=== PATIENT | male | born 1965 | race Two or more races ===

== ENCOUNTER 2022-11-04 01:31 | Inpatient (IN) | payer MEDICAID ==
[~2022-11-04] VITALS: Ht 188 cm; Wt 117.5 kg
[2022-11-04 02:46] LABS: Basophils # (auto) 0 10 ^3/uL (0-0.2); Basophils % (auto) 0.5 % (0.0-2.0); Eosinophils # (auto) 0.3 10 ^3/uL (0-0.8); Eosinophils % (auto) 2.6 % (0.0-7.0); Hematocrit 45.1 % (41.0-53.0); Hemoglobin 15.5 g/dL (13.5-17.5); Lymphocytes # (auto) 1.5 10 ^3/uL (0.4-5.4); Lymphocytes % (auto) 15.1 % (10.0-50.0); Mean Corpuscular Hemoglobin 31.2 pg (28.0-32.0); Mean Corpuscular Hgb Conc. 34.3 g/dL (32.0-36.0); Monocytes # (auto) 1.6 10 ^3/uL (0-1.3); Neutrophils # (auto) 6.5 10 ^3/uL (1.6-8.6); Neutrophils % (auto) 65.8 % (37.0-80.0); Nucleated Red Blood Cells % 0.1 %; Red Blood Cells 4.96 10^6/uL (4.5-5.90); Red Cell Distribution Width 13.9 % (11.8-14.3); White Blood Cell 9.9 10^3/uL (4.4-10.8)
[2022-11-04 03:01] LABS: INR 1.17 (0.9-1.15); Partial Thromboplastin Time 34.5 SEC (24.5-34.5); Prothrombin Time 12.2 sec (9.3-11.8)
[2022-11-04 03:20] LABS: Alanine Aminotransferase 12 U/L (7-40); Alkaline Phosphatase 90 U/L (46-116); Anion Gap 7.3 (5-15); Aspartate Aminotransferase 18 U/L (13-40); BUN/Creatinine Ratio 14.4 (10.0-20.0); Blood Urea Nitrogen 13 mg/dL (9-23); Carbon Dioxide 23.7 mmol/L (20-30); Chloride 102 mmol/L (98-107); Glucose 125 mg/dL (74-106); Potassium 3.9 mmol/L (3.5-5.1); Sodium 133 mmol/L (136-145)
[2022-11-04 03:21] LABS: Bilirubin, Total 0.9 mg/dL (0.2-1.0); Total Protein 7.7 g/dL (5.7-8.2)
[2022-11-04] MEDS ORDERED: FUROSEMIDE 40 MG/4 ML VIAL IV ONE ×2 (07:15→13:45)
[2022-11-04] MEDS ORDERED: cloNIDine HCL 0.1 MG TAB PO ONE (08:00)
[2022-11-04] MEDS ORDERED: CLINDAMYCIN HCL 150 MG CAP PO ONE (09:45)
[2022-11-04] MEDS ORDERED: cefTRIAXone 1GM/50ML D5W 50 ML IV ONE (09:45)
[2022-11-04 12:30] VITALS: PULSE 75; RESP 19; O2SAT 98
[2022-11-04] MEDS ORDERED: VANCOMYCIN PER PHARMACY 0 MG IV SCH (13:45)
[2022-11-04] MEDS ORDERED: NITROGLYCERIN 0.4 MG SL TAB SL PRN (13:45)
[2022-11-04] MEDS ORDERED: MORPHINE SULFATE INJ 2 MG/ml SYRG IV PRN ×2 (13:45→17:15)
[2022-11-04] MEDS ORDERED: PIPERACILLIN-TAZOB 3.375GM 100 ML IV SCH ×2 (14:00→14:15)
[2022-11-04] MEDS: METOPROLOL SUCCINATE XL 50 MG TAB PO SCH (14:01)
[2022-11-04] MEDS: LOSARTAN POTASSIUM 25 MG TAB PO SCH (14:02)
[2022-11-04] MEDS: APIXABAN 5 MG TAB PO SCH ×2 (14:02→22:25)
[2022-11-04] MEDS: SPIRONOLACTONE 25 MG TAB PO SCH (14:02)
[2022-11-04] MEDS: VANCOMYCIN 1GM/250ML 250 ML IV SCH (15:10)
[2022-11-04 15:58] LABS: Urine Bacteria NONE SEEN /hpf (None Seen); Urine Blood 1+ /uL (Negative); Urine Clarity Clear (Clear); Urine Color Colorless (Yellow); Urine Protein, UAD Negative (Negative); Urine Specific Gravity 1.008 (1.001-1.035); Urine Urobilinogen Normal (Negative); Urine WBC 28 /hpf (0 - 3); Urine pH 6.5 (5.0-8.0)
[2022-11-04 19:30] VITALS: PULSE 72; RESP 22; O2SAT 96
[2022-11-04] MEDS: PIPERACILLIN-TAZOB 3.375GM 100 ML IV SCH (20:54)
[2022-11-05] MEDS ORDERED: METO25TA93 PO (00:28)
[2022-11-05] MEDS ORDERED: APIX5TAB PO (00:28)
[2022-11-05] MEDS ORDERED: LOSA25TA15 PO (00:28)
[2022-11-05] MEDS ORDERED: FURO40TA4 PO (00:28)
[2022-11-05] MEDS ORDERED: SPIR25TA8 PO (00:28)
[2022-11-05] MEDS: VANCOMYCIN 1GM/250ML 250 ML IV SCH ×3 (01:19→22:21)
[2022-11-05] MEDS: PIPERACILLIN-TAZOB 3.375GM 100 ML IV SCH ×4 (02:24→20:30)
[2022-11-05 05:00] VITALS: BP 143/82; PULSE 67; RESP 20; TEMP 98.4; O2SAT 98
[2022-11-05 06:36] LABS: Anion Gap 5.4 (5-15); Carbon Dioxide 28.6 mmol/L (20-30); Chloride 102 mmol/L (98-107); Sodium 136 mmol/L (136-145)
[2022-11-05 06:37] LABS: Calcium 8.6 mg/dL (8.5-10.1)
[2022-11-05 06:42] LABS: BUN/Creatinine Ratio 17.5 (10.0-20.0); Blood Urea Nitrogen 17 mg/dL (9-23); Glucose 112 mg/dL (74-106); Triglycerides 93 mg/dL (< 150)
[2022-11-05 06:43] LABS: LDL Cholesterol 91 mg/dL (< 100)
[2022-11-05 06:44] LABS: Cholesterol 126 mg/dL (< 200); HDL Cholesterol 23 mg/dL (40-59)
[2022-11-05 06:46] LABS: Basophils # (auto) 0.1 10 ^3/uL (0-0.2); Basophils % (auto) 0.8 % (0.0-2.0); Eosinophils # (auto) 0.4 10 ^3/uL (0-0.8); Eosinophils % (auto) 4.9 % (0.0-7.0); Hematocrit 44.2 % (41.0-53.0); Hemoglobin 15.1 g/dL (13.5-17.5); Lymphocytes # (auto) 1.6 10 ^3/uL (0.4-5.4); Lymphocytes % (auto) 18.3 % (10.0-50.0); Mean Corpuscular Hemoglobin 31.1 pg (28.0-32.0); Mean Corpuscular Hgb Conc. 34.1 g/dL (32.0-36.0); Mean Corpuscular Volume 91.1 fL (80.0-100.0); Monocytes # (auto) 1.3 10 ^3/uL (0-1.3); Monocytes % (auto) 15.4 % (0.0-12.0); Neutrophils # (auto) 5.2 10 ^3/uL (1.6-8.6); Neutrophils % (auto) 60.6 % (37.0-80.0); Red Blood Cells 4.86 10^6/uL (4.5-5.90); Red Cell Distribution Width 13.6 % (11.8-14.3); White Blood Cell 8.6 10^3/uL (4.4-10.8)
[2022-11-05 08:00] VITALS: RESP 18
[2022-11-05 09:00] VITALS: BP 129/85; PULSE 84; RESP 17; TEMP 97.4; O2SAT 97
[2022-11-05] MEDS: FUROSEMIDE 40 MG/4 ML VIAL IV SCH (10:00)
[2022-11-05] MEDS: APIXABAN 5 MG TAB PO SCH ×2 (10:00→19:56)
[2022-11-05] MEDS: SPIRONOLACTONE 25 MG TAB PO SCH (11:01)
[2022-11-05] MEDS: LOSARTAN POTASSIUM 25 MG TAB PO SCH (11:02)
[2022-11-05] MEDS: METOPROLOL SUCCINATE XL 50 MG TAB PO SCH (11:03)
[2022-11-05 13:03] VITALS: BP 153/90; PULSE 74; RESP 17; TEMP 97.5; O2SAT 96
[2022-11-05 16:08] LABS: Urine Bacteria NONE SEEN /hpf (None Seen); Urine Blood 3+ /uL (Negative); Urine Clarity HAZY (Clear); Urine Color Yellow (Yellow); Urine Protein, UAD TRACE (Negative); Urine Specific Gravity 1.014 (1.001-1.035); Urine WBC 54 /hpf (0 - 3)
[2022-11-05 16:47] LABS: INR 1.18 (0.9-1.15); Partial Thromboplastin Time 31.2 SEC (24.5-34.5); Prothrombin Time 12.3 sec (9.3-11.8)
[2022-11-05 17:00] VITALS: BP 134/81; PULSE 79; RESP 18; TEMP 97.7; O2SAT 96
[2022-11-05] MEDS: ATORVASTATIN 20 MG TAB PO SCH (20:33)
[2022-11-06] MEDS: PIPERACILLIN-TAZOB 3.375GM 100 ML IV SCH ×4 (01:25→21:38)
[2022-11-06 05:19] LABS: Calcium 8.9 mg/dL (8.5-10.1); Chloride 102 mmol/L (98-107); Potassium 4.2 mmol/L (3.5-5.1); Sodium 134 mmol/L (136-145)
[2022-11-06 05:20] LABS: Anion Gap 5.6 (5-15); Carbon Dioxide 26.4 mmol/L (20-30)
[2022-11-06 05:26] LABS: BUN/Creatinine Ratio 13.5 (10.0-20.0); Blood Urea Nitrogen 13 mg/dL (9-23); Glucose 119 mg/dL (74-106)
[2022-11-06 05:27] LABS: Basophils # (auto) 0.1 10 ^3/uL (0-0.2); Basophils % (auto) 0.7 % (0.0-2.0); Eosinophils # (auto) 0.3 10 ^3/uL (0-0.8); Eosinophils % (auto) 3.5 % (0.0-7.0); Hematocrit 45.9 % (41.0-53.0); Hemoglobin 15.7 g/dL (13.5-17.5); Lymphocytes # (auto) 1.2 10 ^3/uL (0.4-5.4); Lymphocytes % (auto) 13.8 % (10.0-50.0); Mean Corpuscular Hemoglobin 31.3 pg (28.0-32.0); Mean Corpuscular Hgb Conc. 34.2 g/dL (32.0-36.0); Mean Corpuscular Volume 91.6 fL (80.0-100.0); Monocytes # (auto) 1.1 10 ^3/uL (0-1.3); Monocytes % (auto) 12.8 % (0.0-12.0); Neutrophils # (auto) 6.1 10 ^3/uL (1.6-8.6); Neutrophils % (auto) 69.2 % (37.0-80.0); Red Blood Cells 5.01 10^6/uL (4.5-5.90); Red Cell Distribution Width 13.8 % (11.8-14.3); White Blood Cell 8.8 10^3/uL (4.4-10.8)
[2022-11-06 08:00] VITALS: RESP 18
[2022-11-06 08:30] VITALS: BP_SYST 117; BP_SYST 150; BP_DIAS 80; BP_DIAS 90; PULSE 54; PULSE 63; RESP 19; RESP 20; TEMP 97.9; TEMP 98; O2SAT 100
[2022-11-06] MEDS: VANCOMYCIN 1GM/250ML 250 ML IV SCH ×2 (09:02→18:08)
[2022-11-06] MEDS: SPIRONOLACTONE 25 MG TAB PO SCH (09:12)
[2022-11-06] MEDS: METOPROLOL SUCCINATE XL 50 MG TAB PO SCH (09:12)
[2022-11-06] MEDS: LOSARTAN POTASSIUM 25 MG TAB PO SCH (09:12)
[2022-11-06] MEDS: FUROSEMIDE 40 MG/4 ML VIAL IV SCH (10:00)
[2022-11-06] MEDS: APIXABAN 5 MG TAB PO SCH ×2 (10:00→19:56)
[2022-11-06 16:30] VITALS: BP 129/83; PULSE 53; RESP 20; TEMP 98; O2SAT 97
[2022-11-06 21:38] VITALS: BP 136/96; PULSE 61; RESP 100; TEMP 98.1; O2SAT 100
[2022-11-06] MEDS: ATORVASTATIN 20 MG TAB PO SCH (21:40)
[2022-11-07] MEDS: PIPERACILLIN-TAZOB 3.375GM 100 ML IV SCH ×2 (02:00→09:14)
[2022-11-07] MEDS: VANCOMYCIN 1GM/250ML 250 ML IV SCH ×2 (04:08→13:40)
[2022-11-07 05:00] VITALS: BP 170/98; PULSE 64; RESP 16; TEMP 98.1; O2SAT 98
[2022-11-07 06:30] VITALS: BP 162/102; PULSE 63
[2022-11-07 06:54] LABS: Calcium 9.2 mg/dL (8.7-10.4); Chloride 102 mmol/L (98-107); Potassium 4.1 mmol/L (3.5-5.1); Sodium 133 mmol/L (136-145)
[2022-11-07 06:55] LABS: Anion Gap 7.3 (5-15); Carbon Dioxide 23.7 mmol/L (20-30)
[2022-11-07 07:00] LABS: BUN/Creatinine Ratio 10.9 (10.0-20.0); Blood Urea Nitrogen 10 mg/dL (9-23); Glucose 137 mg/dL (74-106)
[2022-11-07 08:13] LABS: Basophils # (auto) 0.1 10 ^3/uL (0-0.2); Basophils % (auto) 0.9 % (0.0-2.0); Eosinophils # (auto) 0.5 10 ^3/uL (0-0.8); Eosinophils % (auto) 5.6 % (0.0-7.0); Hematocrit 47.5 % (41.0-53.0); Hemoglobin 16.2 g/dL (13.5-17.5); Lymphocytes # (auto) 1.8 10 ^3/uL (0.4-5.4); Lymphocytes % (auto) 20.8 % (10.0-50.0); Mean Corpuscular Hgb Conc. 34.1 g/dL (32.0-36.0); Monocytes # (auto) 1.1 10 ^3/uL (0-1.3); Monocytes % (auto) 12.3 % (0.0-12.0); Neutrophils # (auto) 5.3 10 ^3/uL (1.6-8.6); Neutrophils % (auto) 60.4 % (37.0-80.0); Nucleated Red Blood Cells % 0.1 %; Red Blood Cells 5.22 10^6/uL (4.5-5.90); Red Cell Distribution Width 13.7 % (11.8-14.3); White Blood Cell 8.7 10^3/uL (4.4-10.8)
[2022-11-07 09:00] VITALS: BP 159/102; PULSE 69; RESP 18; TEMP 97.8; O2SAT 96
[2022-11-07] MEDS: FUROSEMIDE 40 MG/4 ML VIAL IV SCH (09:24)
[2022-11-07] MEDS: METOPROLOL SUCCINATE XL 50 MG TAB PO SCH (09:25)
[2022-11-07] MEDS: APIXABAN 5 MG TAB PO SCH (09:25)
[2022-11-07] MEDS: SPIRONOLACTONE 25 MG TAB PO SCH (09:26)
[2022-11-07] MEDS ORDERED: LOSARTAN POTASSIUM 50 MG TAB PO SCH (10:00)
[2022-11-07 14:55] VITALS: BP 159/102; PULSE 69; RESP 18; TEMP 97.8; O2SAT 96
[2022-11-07] MEDS ORDERED: FURO40TA4 PO (14:57)
[2022-11-07] MEDS ORDERED: SPIR25TA8 PO (14:57)
[2022-11-07] MEDS ORDERED: APIX5TAB PO (14:57)
[2022-11-07] MEDS ORDERED: METO25TA93 PO (14:57)
[2022-11-07] MEDS ORDERED: DOXY1CAP57 PO (14:57)
[2022-11-07] MEDS ORDERED: LOSA25TA15 PO (14:57)
== END 2022-11-07 16:20 | disposition home or self-care (01) | DRG 383 ==
LOC: ER 01:31 → OVERFLOW 13:32 → WEST WING 23:28
PROVIDERS: ADMIT Internal Medicine; ATTEND Student in an Organized Health Care Education/Training Program
DX: L03.116 Cellulitis of left lower limb (principal); I11.0 Hypertensive heart disease with heart failure; I50.22 Chronic systolic (congestive) heart failure; E66.9 Obesity, unspecified; I48.91 Unspecified atrial fibrillation; L03.115 Cellulitis of right lower limb; N39.0 Urinary tract infection, site not specified; F17.210 Nicotine dependence, cigarettes, uncomplicated; R31.0 Gross hematuria; R73.03 Prediabetes; I25.10 Atherosclerotic heart disease of native coronary artery without angina pectoris; E78.5 Hyperlipidemia, unspecified; Z82.49 Family history of ischemic heart disease and other diseases of the circulatory system; Z68.33 Body mass index [BMI] 33.0-33.9, adult
CPT/HCPCS: 36415; 71045; 76775; 78582; 80048; 80053; 80061; 80202; 81001; 83036; 83880; 84484; 85025; 85379; 85384; 85610; 85730; 86141; 87086; 93005; 93971; 96365; 96367; 96375; 96376; G0378; J0696; J2543